=== PATIENT | female | born 1985 | race Hispanic/Latino ===

== ENCOUNTER 2022-12-01 21:33 | Emergency (ER) | payer OTHER ==
[~2022-12-01] VITALS: Ht 149.9 cm; Wt 77.1 kg
== END 2022-12-01 23:24 | disposition home or self-care (01) ==
LOC: ER 21:40
DX: S00.83XA Contusion of other part of head, initial encounter (principal); W01.0XXA Fall on same level from slipping, tripping and stumbling without subsequent striking against object, initial encounter; Y93.01 Activity, walking, marching and hiking; Y92.89 Other specified places as the place of occurrence of the external cause; R51.9 Headache, unspecified
CPT/HCPCS: 70450; 99283